=== PATIENT | female | born 1935 | race Caucasian/White ===

== ENCOUNTER → 2017-02-20 | Outpatient (CLI) | payer OTHER | LOC: FIMAGING 15:49 | PROVIDERS: ATTEND Family Medicine | DX: M47.896 Other spondylosis, lumbar region (principal) ==

== ENCOUNTER → 2017-03-19 | Outpatient (CLI) | payer OTHER | LOC: GIMAGING 16:12 | PROVIDERS: ATTEND Nurse Practitioner Family | DX: M20.12 Hallux valgus (acquired), left foot (principal); M15.4 Erosive (osteo)arthritis | CPT/HCPCS: 73660-PO ==

== ENCOUNTER → 2017-07-06 | Outpatient (CLI) | payer OTHER | LOC: FIMAGING 09:58 | PROVIDERS: ATTEND Family Medicine | DX: M20.12 Hallux valgus (acquired), left foot (principal); M19.072 Primary osteoarthritis, left ankle and foot ==

== ENCOUNTER → 2017-12-04 | Outpatient (CLI) | payer OTHER | LOC: FIMAGING 12:55 | PROVIDERS: ATTEND Family Medicine | DX: Z12.31 Encounter for screening mammogram for malignant neoplasm of breast (principal); Z13.820 Encounter for screening for osteoporosis; M85.89 Other specified disorders of bone density and structure, multiple sites; Z78.0 Asymptomatic menopausal state ==

== ENCOUNTER → 2018-02-07 | Outpatient (CLI) | payer OTHER | LOC: BHFA 09:15 | PROVIDERS: ATTEND Internal Medicine Interventional Cardiology | DX: I49.3 Ventricular premature depolarization (principal); I47.1 Supraventricular tachycardia; M35.00 Sjogren syndrome, unspecified ==

== ENCOUNTER 2018-11-12 09:52 | Emergency (ER) | payer OTHER ==
--- NOTE | 2018-11-12 10:17 | EDPHY ---
General Time Seen by Provider: 11/12/18 09:57 Narrative: CLINICAL IMPRESSION: Weakness and fatigue ASSESSMENT/PLAN: 83-year-old female presents to the emergency department feeling weak and fatigued this morning in the setting of 3 episodes of diarrhea. Patient became concerned as she has a LINQ recorder in place due to a history of V-tach and was concerned that she may have had an episode of tachycardia this morning. She is scheduled for an ablation with Dr. Puente on December 16. She has no complaints of chest pain, shortness of breath, palpitations, headache, dizziness or vertigo. She is alert, oriented without focal neurological deficits. EKG reassuring, read and interpreted by Dr. Mathew, no acute ST or T- wave changes. Troponin negative. Labs without significant electrolyte imbalance, metabolic disturbance, anemia or sign of infection. Urine studies without suggestion of UTI. I discussed patient's case with Treva from Cardiology who had patient's LINQ interrogated in the emergency department and found to be working appropriately without documentation of tachycardia or arrhythmia. Patient was reassured by these findings, was tolerating oral fluids in the ED and ambulatory to the restroom without difficulty. She feels comfortable with discharge home and outpatient PCP and Cardiology follow-up. Warning signs return to ED sooner outlined and discharge. Case discussed with Dr. Mathew. DIFFERENTIAL DX: Differential includes but not limited to cardiac arrhythmia, ACS, metabolic disturbance, electrolyte imbalance, UTI, dehydration ED PROCEDURES: See lab and/or imaging results below ED COURSE: 10:00 a.m.:. Patient seen assessed by myself. Vital signs stable. Normal sinus rhythm with a rate in the 70s. Discussed with Dr. Mathew. Page to Dr. Chavez. Patient apparently has a links monitor that has been in place for approximately 3 years, she is established with Dr. Puente and has a scheduled ablation on December 16. 10:10 a.m.: Discussed with Janette, physician assistant pastry chef from [facility]. She will look for patient's Linx recorder readings and call us back. 11:10 a.m.: Patient's linx recorder was interrogated by [facility] in the emergency department with no abnormal readings detected. Labs reassuring, no evidence of UTI, electrolyte imbalance, dehydration, renal insufficiency, anemia , acute cardiopulmonary abnormality on chest x-ray. Patient ambulated to the restroom without difficulty. She is requesting water. Plan to discharge home with outpatient PCP and Cardiology follow-up. CHIEF COMPLAINT: Fatigued, Weakness HPI: 83-year-old female presents to the emergency department by ambulance with complaints of relatively sudden onset fatigue and weakness this morning. Patient states she awoke in the early hours this morning feeling weak and had to use the restroom. She had 4 separate episodes of diarrhea. She reports this is very atypical for her. She has a Linx recorder that has been in place for 2-3 years secondary to a episode of V-tach. She is established with Dr. Gregg and Dr. Puente, last saw Dr. Puente approximately 2 weeks ago and is scheduled for an ablation on December 16. She has no complaints of chest pain or shortness of breath. She has been well recently. No history of UTI. No recent fever or chills. No flu-like symptoms. She reported when she had her episode of V-tach she felt very tired and then apparently ended up on the floor. She is here with a close friend who checked a pulse ox this morning and reported her heart rate was 110 with normal oxygen level. 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 Puente 2 weeks ago. PAST MEDICAL HISTORY: History of V-tach, links recorder in place, hypothyroid, Sjogren's disease See nurse/triage notes for additional history if applicable Pertinent Past Surgical History: None reported Family History: Noncontributory Social History: Nonsmoker, here with her friend REVIEW OF SYSTEMS: All other systems negative Constitutional: No fever, no chills, positive for appetite change. Eyes: No discharge, vision change ENT: No sore throat, congestion, ear pain. Cardiovascular: No chest pain, no palpitations. Respiratory: No cough, no shortness of breath. Gastrointestinal: No abdominal pain, no vomiting, positive for diarrhea. Genitourinary: No hematuria, dysuria, flank pain, pelvic pain Musculoskeletal: No back pain, joint swelling, joint pain, myalgias. Skin: No rashes, color change. Neurological: No headache, dizziness, positive for weakness. PHYSICAL EXAM: General Appearance: Alert, oriented, appropriate, cooperative, frail, thin NAD , well hydrated, non-toxic appearing, heart rate at 75 with normal sinus rhythm during my exam, remainder of vital signs stable, no hypoxia. HEENT: Dry mucous membranes, Oropharynx clear is no erythema or exudates, no tonsillar hypertrophy or asymmetry. Dentition without abnormality. Neck: Supple, nontender, no lymphadenopathy, no midline pain, FROM, no meningismus. Respiratory: There are no retractions, lungs are clear to auscultation. Cardiac: Regular rate and rhythm, no murmurs or gallops. Gastrointestinal: Abdomen is soft, nontender, bowel sounds normal, no masses/ hernia, no rigidity, guarding or focal peritoneal findings. Neurological: [ Alert and oriented x 3, CN 2-12 grossly intact Skin: Warm, dry, no rashes, no nodules on palpation. Musculoskeletal: Extremities are symmetrical, full range of motion, no tenderness, deformity, swelling, or erythema. No asymmetric calf pain, swelling or erythema Psychiatric: Patient is oriented X 3, there is no agitation. MEDICAL DECISION MAKING: Patient was seen independently. Secondary supervising physician at time of evaluation was Dr. Mathew . Diagnosis: Weakness and fatigue. New, requires workup Summary: See Assessment and Plan for summary of ED visit Clinical lab tests: ordered / reviewed. Independent visualization of images, tracing, or specimens: Yes. Discussed patient with another provider: Treva Blanco with Cardiology Patient Progress: Improved, stable for discharge . - Diagnostics Imaging Results: Imaging Impressions Chest X-Ray 11/12/18 10:08 Impression: 1. Mild bronchitis. 2. No definite pneumonia or congestive heart failure. - History Smoking Status: Never smoked - Objective Vital Signs: Initial Vital Signs Temperature (C) 36.8 C 11/12/18 09:55 Heart Rate 76 11/12/18 09:55 Respiratory Rate 16 11/12/18 09:55 O2 Sat (%) 93 11/12/18 09:55 O2 Delivery Mode Room Air Allergies/Adverse Reactions: No Known Allergies Allergy (Unverified 11/12/18 09:55) Home Medications: Medication Instructions Recorded Acetaminophen [Tylenol 325mg (*)] 325 mg PO Q6 PRN 02/29/16 Herbals/Supplements -Info Only 1 ea PO DAILY 02/29/16 Thyroid,Pork [Westhroid] 32.5 mg PO HS 02/29/16 cycloSPORINE 0.05% [Restasis Opht 1 drop EACHEYE BID 02/29/16 Drops(*)] Acyclovir 400 mg PO BID 05/24/16 Benadryl 25 MG (*) 25 mg PO DAILY PRN 05/24/16 Laboratory Results: Laboratory Results 11/12/18 09:55 11/12/18 09:55 11/12/18 11/12/18 11/12/18 10:40 10:04 09:55 WBC RBC Hgb Hct MCV MCH MCHC RDW Plt Count MPV Neut % (Auto) Lymph % (Auto) Reagan % (Auto) Eos % (Auto) Baso % (Auto) Nucleat RBC Rel Count Absolute Neuts (auto) Absolute Lymphs (auto) Absolute Monos (auto) Absolute Eos (auto) Absolute Basos (auto) Absolute Nucleated RBC Immature Gran % Immature Gran # Sodium 139 mEq/L mEq/L (135-145) Potassium 4.3 mEq/L mEq/L (3.5-5.2) Chloride 104 mEq/L mEq/L (97-110) Carbon Dioxide 26 mEq/l mEq/l (22-31) Anion Gap 9 mEq/L mEq/L (6-14) BUN 12 mg/dL mg/dL (7-23) Creatinine 1.0 mg/dL mg/dL (0.6-1.0) Estimated GFR 53 Glucose 90 mg/dL mg/dL (70-100) Calcium 9.7 mg/dL mg/dL (8.5-10.4) POC Troponin I 0.02 ng/mL ng/mL (0.00-0.08) Urine Color PALE YELLOW Urine Appearance CLEAR Urine pH 8.0 H (5.0-7.5) Ur Specific [place] 1.003 (1.002-1.030) Urine Protein NEGATIVE (NEGATIVE) Urine Ketones NEGATIVE (NEGATIVE) Urine Blood NEGATIVE (NEGATIVE) Urine Nitrate NEGATIVE (NEGATIVE) Urine Bilirubin NEGATIVE (NEGATIVE) Urine Urobilinogen NEGATIVE EU EU (0.2-1.0) Ur Leukocyte Esterase NEGATIVE (NEGATIVE) Urine Glucose NEGATIVE (NEGATIVE) 11/12/18 09:55 WBC 6.44 10^3/uL 10^3/uL (3.80-9.50) RBC 5.27 10^6/uL 10^6/uL (4.18-5.33) Hgb 15.9 g/dL g/dL (12.6-16.3) Hct 47.3 % H % (38.0-47.0) MCV 89.8 fL fL (81.5-99.8) MCH 30.2 pg pg (27.9-34.1) MCHC 33.6 g/dL g/dL (32.4-36.7) RDW 13.2 % % (11.5-15.2) Plt Count 298 10^3/uL 10^3/uL (150-400) MPV 10.5 fL fL (8.7-11.7) Neut % (Auto) 69.2 % % (39.3-74.2) Lymph % (Auto) 17.9 % % (15.0-45.0) Reagan % (Auto) 10.1 % % (4.5-13.0) Eos % (Auto) 1.1 % % (0.6-7.6) Baso % (Auto) 0.8 % % (0.3-1.7) Nucleat RBC Rel Count 0.0 % % (0.0-0.2) Absolute Neuts (auto) 4.46 10^3/uL 10^3/uL (1.70-6.50) Absolute Lymphs (auto) 1.15 10^3/uL 10^3/uL (1.00-3.00) Absolute Monos (auto) 0.65 10^3/uL 10^3/uL (0.30-0.80) Absolute Eos (auto) 0.07 10^3/uL 10^3/uL (0.03-0.40) Absolute Basos (auto) 0.05 10^3/uL 10^3/uL (0.02-0.10) Absolute Nucleated RBC 0.00 10^3/uL 10^3/uL (0-0.01) Immature Gran % 0.9 % % (0.0-1.1) Immature Gran # 0.06 10^3/uL 10^3/uL (0.00-0.10) Sodium Potassium Chloride Carbon Dioxide Anion Gap BUN Creatinine Estimated GFR Glucose Calcium POC Troponin I Urine Color Urine Appearance Urine pH Ur Specific [place] Urine Protein Urine Ketones Urine Blood Urine Nitrate Urine Bilirubin Urine Urobilinogen Ur Leukocyte Esterase Urine Glucose Point of Care Test Results: Chemistry 11/12/18 10:04 POC Troponin I 0.02 ng/mL ng/mL (0.00-0.08) Departure - Departure Disposition: Home, Routine, Self-Care Clinical Impression: Weakness Condition: Good Instructions: Weakness (ED) Additional Instructions: DISCHARGE INSTRUCTIONS FROM YOUR DOCTOR Thank you for visiting our emergency department today. You were treated by a physician assistant pastry chef today and your case was reviewed with our ED Attending physician. Please keep in mind that discharge from the emergency department does not mean that there is nothing wrong - it simply means that we have not identified an emergency condition that requires further evaluation or treatment in the hospital. You should always plan to follow up with primary care for re- evaluation of your condition in the next 2-3 days. If you have been referred to a specialist, please call as soon as possible (today or tomorrow) to schedule your follow up appointment at the appropriate time. YOUR DIAGNOSTIC EVALUATION IN THE EMERGENCY DEPARTMENT INCLUDED EKG, CARDIAC ENZYMES, CHEST X-RAY, LAB AND URINE STUDIES. YOUR LYNX MONITOR WAS INTERROGATED BY [employer] IN THE EMERGENCY DEPARTMENT AND FOUND TO HAVE NO ABNORMAL READINGS OR EVIDENCE OF RECENT TACHYCARDIA. CARDIAC ENZYMES WERE NORMAL, CHEST X-RAY SHOWED MILD INFLAMMATION OF THE AIRWAYS BUT NO PNEUMONIA, AND LAB WORK IS ALL REASSURING WITH NO ABNORMALITY DETECTED. NO EVIDENCE OF BLADDER INFECTION. PLEASE MONITOR SYMPTOMS CLOSELY AT HOME. FOLLOW UP WITH HER PRIMARY CARE DOCTOR IN 1-2 DAYS. FOLLOW UP WITH CARDIOLOGY INDICATED. RETURN TO THE EMERGENCY DEPARTMENT FOR WORSENING SYMPTOMS, CHEST PAIN, SHORTNESS OF BREATH, FAINTING EPISODES, TACHYCARDIA, FEVER OR ANY OTHER CONCERNS. People present with illnesses and injuries in different ways, and it is always possible that we have missed something. You may always return for re-evaluation if symptoms worsen or if they are not improving or if you develop new/different symptoms. Again, thank you for choosing our emergency department. We hope that you feel better. Referrals: Keily Ochoa MD [Primary Care Provider] - 1-2 days without fail Tripp Gregg MD [Medical Doctor] - 1-2 days without fail
[2018-11-12 10:19] LABS: PLATELET COUNT 298 10^3/uL (150-400)
[2018-11-12 11:18] VITALS: BP 136/72
--- NOTE | 2018-11-12 15:05 | CPEKG ---
Test Reason : OPEN Blood Pressure : / mmHG Vent. Rate : 075 BPM Atrial Rate : 075 BPM P-R Int : 166 ms QRS Dur : 090 ms QT Int : 393 ms P-R-T Axes : 081 077 061 degrees QTc Int : 439 ms Sinus rhythm Confirmed by Ria Espana ([id number]) on 11/12/2018 3:05:23 PM Referred By: RIA ESPANA Confirmed By:Ria Espana
== END 2018-11-12 11:46 | disposition home or self-care (01) ==
LOC: EDUNIT#
DX: R53.1 Weakness (principal); R19.7 Diarrhea, unspecified; Z86.79 Personal history of other diseases of the circulatory system; Z95.818 Presence of other cardiac implants and grafts
CPT/HCPCS: 84484-ER

== ENCOUNTER → 2018-12-09 | Outpatient (CLI) | payer OTHER ==
[~2018-12-09] MED LIST: GADOBUTROL 10 ML VIAL IVP ONE
== END ==
LOC: FIMAGING 11:37
PROVIDERS: ATTEND Family Medicine
DX: S06.9X9A Unspecified intracranial injury with loss of consciousness of unspecified duration, initial encounter (principal); G31.84 Mild cognitive impairment of uncertain or unknown etiology; J32.0 Chronic maxillary sinusitis; F41.9 Anxiety disorder, unspecified
CPT/HCPCS: 70553; A9585